=== PATIENT | female | born 1955 | race Caucasian/White ===

== ENCOUNTER 2016-08-08 22:00 | Inpatient (IN) ==
[2016-08-09] MEDS ORDERED: *HR* HYDROmorphone (PF) 1 MG/ML SYRINGE IVP ONE (00:33)
--- NOTE | 2016-08-09 01:26 | Internal Med History&Physical ---
Date of Encounter: 08/09/16 Time of Encounter: 01:26 Assessment and Plan (1) Obstructive uropathy Current visit: Yes Status: Acute Due to suspected right ureteric calculus - will request US scan of the KUB. Medical therapy with flomax, IV fluids. Urology consult - for possible intervention. Pt is NPO now (2) Hydronephrosis Current visit: Yes Status: Acute Due to suspected right ureteric calculus. Medical therapy with flomax, IV fluids. analgesia. Urology consult. Qualifiers: Hydronephrosis type: with ureteral calculous obstruction Qualified Code(s) : N13.2 - Hydronephrosis with renal and ureteral calculous obstruction (3) Ureteric calculus Current visit: Yes Status: Suspected (4) NICHOL (acute kidney injury) Current visit: Yes Status: Acute Likely due to obstructive uropathy. Monitor renal function (5) Abdominal pain Current visit: Yes Status: Acute Likely due to ureteric calculus and hydronephrosis. Analgesia Qualifiers: Abdominal location: right upper quadrant Qualified Code(s): R10.11 - Right upper quadrant pain Internal Medicine - H&P: HPI Chief complaint: Right flank pain Admitted From: Hospital to Hospital Transfer Plans for Post Hospital Care: Home History of present illness: Ms. Palomares is a 60 year old female with past medical history significant for hypertension, chronic back pain - presented to the emergency department at [facility], with the history of right flank pain, started about 4 PM yesterday. Patient reports severe (10/10), sharp pain in the right flank, radiating to the right lower abdomen started at about 4 PM yesterday and continuing. She cannot get comfortable in any position due to pain. She needed multiple pain medications in the emergency department. She reports associated nausea. She denies hematuria, changes in bowel movement. She denies fever, chills, chest pain, shortness of breath, cough or expectoration. She was evaluated in the emergency department at the [facility] and was noted to have right hydronephrosis, with suspicion for ureteric stone. On- call Urologist (at [facility]) was contacted, who recommended admission to the hospitalist service. I have reviewed the CT scan result from [facility] - findings highly suspicious for a hydronephrosis and obstructive uropathy right side. Likely distal right ureteral calculus. Labs reviewed - urinalysis is negative for leukocyte esterase and nitrates. CBC showed WBC 8.5, hemoglobin 12.1, hematocrit 38, platelets 326. Serum sodium 140, potassium 3.3, BUN 16, creatinine 1.27, Glucose 126, calcium 9.2, AST 23, AST 29, ALP 106, bilirubin 0.3, albumin 3.8. Past Med Surg Social Fam HX - Past Medical History Medical history: arthritis, hypertension Psychiatric history: anxiety - Past Surgical History Surgical History: hysterectomy - Social History Smoking Status: Never smoker Smokeless Tobacco Status: No Alcohol use: none Drug use: none - Family History Mother Hx Family Cancer: Yes (breast) Father Hx Family Cancer: Yes (lung) Daughter Hx Family Medical Disorders: Yes (DVT, factor 5) Internal Medicine - H&P: Meds Carla-D 24 Hour Tablet PRN 08/09/16 [History] Buspirone HCl [Buspar] 10 mg PO BID PRN 08/09/16 [History] Cyclobenzaprine 10 mg BID 08/09/16 [History] Microzide 12.5 mg DAILY 08/09/16 [History] Movantik 25 mg DAILY 08/09/16 [History] Neurontin 300 mg TID 08/09/16 [History] Norvasc 10 mg DAILY 08/09/16 [History] Oxycodone HCl 20 mg Q4HR 08/09/16 [History] Tylenol 500 mg PRN 08/09/16 [History] Vitamin D 50,000 units 08/09/16 [History] Zofran 4 mg PRN 08/09/16 [History] Allergies Erythromycin Base Allergy (Verified 08/09/16 00:16) See Comments swelling of eyes and internal organs Methadone Allergy (Verified 08/09/16 00:16) See Comments cardiac arrest x2 Tetracycline Allergy (Verified 08/09/16 00:16) See Comments swelling of eyes and internal organs All Systems PM: A 10-system review of systems was performed and is negative for pertinent findings except as documented above in the HPI. - Constitutional Vitals: Temp Pulse Resp BP Pulse Ox 97.3 F L 99 18 146/93 97 08/08/16 23:50 08/08/16 23:50 08/08/16 23:50 08/08/16 23:50 08/08/16 23:50 Exam: General: In acute distress at the time of my evaluation - offered immediate pain relief HEENT: Oral mucosa is moist. No conjunctival palor or scleral icterus Neck: No obvious neck swellings Lungs: Clear to auscultation Cardiac: Regular rate and rhythm. possible murmurs Abdomen: Tenderness over the right flank and lower abdomen Neurological: Alert and oriented. No gross localizing deficits Psych: Not aggressive or agitated Extremities: no significant leg edema Skin: No generalized rash Internal Med - H&P Results - Labs CBC & Chem 7: 08/09/16 04:50
[2016-08-09] MEDS: *HR* HYDROmorphone (PF) 1 MG/ML SYRINGE IVP PRN ×3 (02:36→11:04)
[2016-08-09] MEDS ORDERED: Ondansetron 4 MG/2 ML VIAL IVP PRN ×2 (03:25→19:13)
[2016-08-09] MEDS ORDERED: Naloxone 0.4 MG/ML INJ IVP PRN ×2 (04:33→19:13)
[2016-08-09 05:01] LABS: Prothrombin Time 11.3 Seconds (9.4-12.1)
[2016-08-09 05:03] LABS: Basophils % 0.4 %; Eosinophils % 0.3 %; Hemoglobin 11.5 g/dL (11.5-15.4); Immature Granulocytes % 0.6 % (0-4); Lymphocytes % 22.4 %; Mean Corpuscular HGB Conc 31.1 g/dL (31.6-35.5); Mean Corpuscular Volume 90.2 fL (83.0-100.0); Mean Platelet Volume 9.1 fL (9.4-12.4); Monocytes # 0.6 K/mcL (0.0-1.3); Monocytes % 6.1 %; Neutrophils # 6.3 K/mcL (1.6-8.9); Platelet Count 283 K/mcL (140-400); Red Cell Distribution Width 13.9 % (11.5-14.5); Segmented Neutrophils % 70.2 %
[2016-08-09 05:04] LABS: Activated Partial Thrombo Time 33.4 Seconds (26.0-36.0)
[2016-08-09] MEDS: 0.9 % Sodium Chloride 1,000 ML IVC SCH ×3 (05:04→22:00)
[2016-08-09] MEDS: *HR* Morphine 2 MG/ML SYRINGE IVP PRN ×3 (05:09→15:44)
[2016-08-09 05:24] LABS: Calcium 8.1 mg/dL (8.6-10.8)
[2016-08-09] MEDS: Gabapentin 300 MG CAPSULE PO SCH ×3 (07:56→20:06)
--- NOTE | 2016-08-09 09:56 | Urology - Consult Note ---
Date of Encounter: 08/09/16 Time of Encounter: 09:53 - Assessment and Plan (1) Hydronephrosis Current Visit: Yes Status: Acute Assessment and plan: from distal stone Qualifiers: Hydronephrosis type: with ureteral calculous obstruction Qualified Code(s) : N13.2 - Hydronephrosis with renal and ureteral calculous obstruction (2) Ureteric calculus Current Visit: Yes Status: Suspected Assessment and plan: will plan on stone extraction this afternoon Urology CN:MOHSEN Consult date: 08/09/16 Reason for consult Urology: Hydronephrosis Requesting physician: Sofi Paige History of present illness: Edie is a 60 y/o female with history of severe right sided flank pain yesterday. The patient states that her pain is a 10/10 sharp in nature. The patient had a ct done at an OSH which showed hydro but no obvious stone. CD not available for review. CT repeated this am showed distal right ureteral stone at the [facility]. + occasional nausea. Past Med Surg Social Fam HX - Past Medical History Medical history: arthritis, hypertension Psychiatric history: anxiety - Past Surgical History Surgical History: hysterectomy - Social History Smoking Status: Never smoker Smokeless Tobacco Status: No Alcohol use: none Drug use: none - Family History Mother Hx Family Cancer: Yes (breast) Father Hx Family Cancer: Yes (lung) Daughter Hx Family Medical Disorders: Yes (DVT, factor 5) Medications and Allergies Amlodipine Besylate [Amlodipine Besylate] 10 mg PO DAILY 08/09/16 [History] Buspirone HCl [Buspar] 10 mg PO BID 08/09/16 [History] Cholecalciferol (Vitamin D3) [Vitamin D3] 50,000 unit PO 2XW 08/09/16 [History] Cyclobenzaprine [Flexeril] 10 mg PO BID 08/09/16 [History] Gabapentin [Neurontin] 300 mg PO BID 08/09/16 [History] Gabapentin [Neurontin] 600 mg PO HS 08/09/16 [History] Hydrochlorothiazide [Hydrochlorothiazide] 12.5 mg PO DAILY 08/09/16 [History] Naloxegol Oxalate [Movantik] 25 mg PO DAILY 08/09/16 [History] Ondansetron HCl 4 mg PO DAILY PRN 08/09/16 [History] Oxycodone HCl 40 mg PO Q6H PRN 08/09/16 [History] Allergies Erythromycin Base Allergy (Verified 08/09/16 00:16) See Comments swelling of eyes and internal organs Methadone Allergy (Verified 08/09/16 00:16) See Comments cardiac arrest x2 Tetracycline Allergy (Verified 08/09/16 00:16) See Comments swelling of eyes and internal organs Review of Systems - Constitutional no chills - EENT Nose, mouth and throat: no dizziness - Cardiovascular no chest pain - Respiratory no cough - Gastrointestinal as per HPI, abdominal pain, change in bowel habits Exam Initial Vital Signs Temp Pulse Resp BP Pulse Ox 97.3 F L 99 18 146/93 97 08/08/16 23:50 08/08/16 23:50 08/08/16 23:50 08/08/16 23:50 08/08/16 23:50 - General physical appearance Present: well developed - Eyes Present: PERRL - ENT Present: normal nares - Neck Present: no masses - Respiratory Present: normal respiratory effort - Cardiovascular Cardiovascular exam IM: RRR Urology Results - Labs 08/09/16 04:50 08/09/16 04:50 Abnormal lab results MCHC 31.1 g/dL (31.6-35.5) L 08/09/16 04:50 MPV 9.1 fL (9.4-12.4) L 08/09/16 04:50 Creatinine 1.32 mg/dL (0.57-1.11) H 08/09/16 04:50 Est GFR ( Amer) 49 (> 60) L 08/09/16 04:50 Est GFR (Non-Af Amer) 41 (> 60) L 08/09/16 04:50 Glucose 107 mg/dL (70-99) H 08/09/16 04:50 Calcium 8.1 mg/dL (8.6-10.8) L 08/09/16 04:50 Diabetes panel 08/09/16 Range/Units 04:50 Sodium 142 (136-145) mEq/L Potassium 4.0 (3.5-4.5) mEq/L Chloride 106 (98-109) mEq/L Carbon Dioxide 29 (19-29) mEq/L BUN 14 (7-20) mg/dL Creatinine 1.32 H (0.57-1.11) mg/dL Glucose 107 H (70-99) mg/dL Calcium 8.1 L (8.6-10.8) mg/dL Calcium panel 08/09/16 Range/Units 04:50 Calcium 8.1 L (8.6-10.8) mg/dL Pituitary panel 08/09/16 Range/Units 04:50 Sodium 142 (136-145) mEq/L Potassium 4.0 (3.5-4.5) mEq/L Chloride 106 (98-109) mEq/L Carbon Dioxide 29 (19-29) mEq/L BUN 14 (7-20) mg/dL Creatinine 1.32 H (0.57-1.11) mg/dL Glucose 107 H (70-99) mg/dL Calcium 8.1 L (8.6-10.8) mg/dL Adrenal panel 08/09/16 Range/Units 04:50 Sodium 142 (136-145) mEq/L Potassium 4.0 (3.5-4.5) mEq/L Chloride 106 (98-109) mEq/L Carbon Dioxide 29 (19-29) mEq/L BUN 14 (7-20) mg/dL Creatinine 1.32 H (0.57-1.11) mg/dL Glucose 107 H (70-99) mg/dL Calcium 8.1 L (8.6-10.8) mg/dL All other labs normal. - Imaging CT scan - abdomen: image reviewed CT scan - pelvis: image reviewed Consult Discharge Plan - Plan Referrals: Sandra Laureano, [employer] [Advanced Practice Nurse] -
[2016-08-09] MEDS ORDERED: *HR* HYDROmorphone 2 MG/ML SYRINGE IVP PRN (11:20)
--- NOTE | 2016-08-09 16:53 | Anesthesia Evaluation PreOp ---
Date of Encounter: 08/09/16 Time of Encounter: 17:24 - Past History Planned Operation: R USE with stent Cardiac History: HTN, Pacemaker/ICD (pacemaker only for bradycardia; last check she wasn't requiring her pacemaker at all) Pulmonary History: Denies Any Significant HX [employer] History: Other (anxiety, chronic back pain -- dorsal column stimulator in place) Other Medical History: Renal (acute renal injury, hydronephrosis), Other ( arthritis) Anesthesia History: No Prior Anesthetic Complications, Past Anesthesia ( hysterectomy) Alcohol Use: none Drug use: none Medications and Allergies Amlodipine Besylate [Amlodipine Besylate] 10 mg PO DAILY 08/09/16 [History] Buspirone HCl [Buspar] 10 mg PO BID 08/09/16 [History] Cholecalciferol (Vitamin D3) [Vitamin D3] 50,000 unit PO 2XW 08/09/16 [History] Cyclobenzaprine [Flexeril] 10 mg PO BID 08/09/16 [History] Gabapentin [Neurontin] 300 mg PO BID 08/09/16 [History] Gabapentin [Neurontin] 600 mg PO HS 08/09/16 [History] Hydrochlorothiazide [Hydrochlorothiazide] 12.5 mg PO DAILY 08/09/16 [History] Naloxegol Oxalate [Movantik] 25 mg PO DAILY 08/09/16 [History] Ondansetron HCl 4 mg PO DAILY PRN 08/09/16 [History] Oxycodone HCl 40 mg PO Q6H PRN 08/09/16 [History] Allergies Erythromycin Base Allergy (Verified 08/09/16 00:16) See Comments swelling of eyes and internal organs Methadone Allergy (Verified 08/09/16 00:16) See Comments cardiac arrest x2 Tetracycline Allergy (Verified 08/09/16 00:16) See Comments swelling of eyes and internal organs - Meds/Allergy Pre-op Review Medications Reviewed: Yes Allergies Reviewed: Yes Beta Blockers on Current Med List: No Anesthesia Results - Labs 08/09/16 04:50 08/09/16 04:50 - Imaging EKG: report reviewed, image reviewed Anesthesia Exam Last Vital Signs Temp 98.3 F 08/09/16 15:21 Pulse 80 08/09/16 15:21 Resp 14 08/09/16 15:21 BP 121/71 08/09/16 15:21 Pulse Ox 99 08/09/16 15:21 - HEENT Pupil (Motor): Pupils equal, EOMI Mallampati: III Teeth: Edentulous Oral Opening: Greater than 3 - [employer] LOC: Oriented [employer] Motor: Normal RUE, Normal LUE, Normal RLE, Normal LLE, Normal Face - Cardiac Rhythm: Regular Murmur: None - Pulmonary Breath Sounds: bilateral Clear Respiratory Effort: Symmetrical Anesthesia Assess/Plan ASA Score: 2 Modified Galt Scale for Level of Consciousness: Cooperative, oriented, and tranquil Anesthetic Plan: General Monitoring Plan: Standard Monitors Recovery Plan: PACU
[2016-08-09] MEDS ORDERED: *HR* Midazolam HCl 2 MG/2 ML VIAL ONE (17:37)
[2016-08-09] MEDS ORDERED: *HR* Propofol 200 MG/20 ML VIAL IVP ONE ×2 (17:37→17:40)
[2016-08-09] MEDS ORDERED: *HR* FentaNYL (PF) 100 MCG/2 ML VIAL ONE (17:37)
[2016-08-09] MEDS ORDERED: Dexamethasone 4 MG/ML VIAL ONE (17:52)
[2016-08-09] MEDS ORDERED: Ondansetron 4 MG/2 ML VIAL ONE (17:52)
[2016-08-09] MEDS ORDERED: *HR* HYDROmorphone (PF) 1 MG/ML SYRINGE IVP PRN (18:05)
[2016-08-09] MEDS ORDERED: *HR* Promethazine 25 MG/ML VIAL IVP PRN (18:05)
--- NOTE | 2016-08-09 18:17 | Operative Note ---
Date of procedure: 08/09/16 Pre-op diagnosis: right distal ureteral stone Post-op diagnosis: same Procedure: right ureteroscopic basket retrieval of stone. right 4.8x26cm ureteral stent placment. Anesthesia: GETA Surgeon: Adria Raman Specimen: right ureteral stone Condition: stable Disposition: PACU Procedure in Detail: Patient was preped and draped in sterile fashion. Time out performed. I then inserted the semirigid ureteroscope into the bladder and then cannulated the right ureter. The distal ureter was narrow, but I was able to negotiate the scope past this area. I then encountered the stone. It was grasped using a basket and removed. I then placed a sensor wire into the right kidney. I then placed a 4.8x26cm ureteral stent into the right kidney. A string was left for easy removal in 2-3 days.
--- NOTE | 2016-08-09 18:42 | Anesthesia Evaluation Post Op ---
Date of Encounter: 08/09/16 Time of Encounter: 18:45 - Vital Signs Vital Signs: Vital Signs/O2 Sat/Glucose, Most Current Temp Pulse Resp BP Pulse Ox 08/09/16 18:36 79 16 143/85 100 08/09/16 18:26 89 16 144/77 100 08/09/16 18:16 99.3 F 94 16 138/85 97 08/09/16 15:21 98.3 F 80 14 121/71 99 - Lungs Lungs: Clear Ascult./Percussion - Airway Airway: Non-obstructed - Cardiovascular Regular Rate - Mental Status Mental Status: Alert & Oriented, Answers Appropriately - Pain Pain Scale: 0 - Nausea Vomiting Nausea Vomiting: Not Present - Hydration Hydration: Ice chips - Discharge PostOp Status: Transfer Patient to floor
[2016-08-09] MEDS: *HR* HYDROmorphone 2 MG/ML SYRINGE IVP PRN ×2 (20:06→22:27)
[2016-08-10] MEDS: *HR* Morphine 2 MG/ML SYRINGE IVP PRN ×2 (03:53→06:38)
[2016-08-10 06:35] LABS: BUN/Creatinine Ratio 14 (6-26); Blood Urea Nitrogen 12 mg/dL (7-20); Calcium 8.4 mg/dL (8.6-10.8); Carbon Dioxide 27 mEq/L (19-29); Chloride 109 mEq/L (98-109); Glucose 108 mg/dL (70-99); Osmolality,Calculated 294 (280-300); Phosphorous 2.3 mg/dL (2.3-4.7); Potassium 4.4 mEq/L (3.5-4.5); Sodium 142 mEq/L (136-145); eGFR For African Americans > 60 (> 60); eGFR For Non-African Americans > 60 (> 60)
[2016-08-10 06:40] LABS: Basophils % 0.2 %; Hematocrit 34.8 % (35.3-44.9); Hemoglobin 10.9 g/dL (11.5-15.4); Immature Granulocytes % 0.5 % (0-4); Lymphocytes # 1.1 K/mcL (0.6-4.6); Lymphocytes % 17.9 %; Mean Corpuscular HGB Conc 31.3 g/dL (31.6-35.5); Mean Corpuscular Volume 92.6 fL (83.0-100.0); Mean Platelet Volume 10.3 fL (9.4-12.4); Monocytes # 0.2 K/mcL (0.0-1.3); Neutrophils # 4.7 K/mcL (1.6-8.9); Platelet Count 260 K/mcL (140-400); Red Blood Count 3.76 M/mcL (3.82-4.97); Red Cell Distribution Width 13.6 % (11.5-14.5); Segmented Neutrophils % 78.4 %
[2016-08-10] MEDS: 0.9 % Sodium Chloride 1,000 ML IVC SCH (06:43)
[2016-08-10 07:19] VITALS: BP 137/75
[2016-08-10] MEDS: Gabapentin 300 MG CAPSULE PO SCH (07:58)
[2016-08-10] MEDS ORDERED: *HR* OxyCODONE Immed Rel 5 MG TABLET PO PRN (08:04)
--- NOTE | 2016-08-10 08:16 | Urology Progress Note ---
Date of Encounter: 08/10/16 Time of Encounter: 08:15 - Assessment and Plan (1) Hydronephrosis Current Visit: Yes Status: Acute Assessment and plan: sp stenting. patient instructed how to remove stent in 2-3 days. Qualifiers: Hydronephrosis type: with ureteral calculous obstruction Qualified Code(s) : N13.2 - Hydronephrosis with renal and ureteral calculous obstruction (2) Ureteric calculus Current Visit: Yes Status: Suspected Assessment and plan: sp removal. f/u in 2-3 weeks Progress Note Narrative: POD 1 from right ureteroscopic stone extraction. patient feeling better. Objective Initial Vital Signs Temp Pulse Resp BP Pulse Ox 97.3 F L 99 18 146/93 97 08/08/16 23:50 08/08/16 23:50 08/08/16 23:50 08/08/16 23:50 08/08/16 23:50 - General physical appearance Present: well developed - Abdomen Present: soft - Labs 08/10/16 05:32 08/10/16 05:32 Diabetes panel 08/10/16 Range/Units 05:32 Sodium 142 (136-145) mEq/L Potassium 4.4 (3.5-4.5) mEq/L Chloride 109 (98-109) mEq/L Carbon Dioxide 27 (19-29) mEq/L BUN 12 (7-20) mg/dL Creatinine 0.85 (0.57-1.11) mg/dL Glucose 108 H (70-99) mg/dL Calcium 8.4 L (8.6-10.8) mg/dL Calcium panel 08/10/16 Range/Units 05:32 Calcium 8.4 L (8.6-10.8) mg/dL Phosphorus 2.3 (2.3-4.7) mg/dL Pituitary panel 08/10/16 Range/Units 05:32 Sodium 142 (136-145) mEq/L Potassium 4.4 (3.5-4.5) mEq/L Chloride 109 (98-109) mEq/L Carbon Dioxide 27 (19-29) mEq/L BUN 12 (7-20) mg/dL Creatinine 0.85 (0.57-1.11) mg/dL Glucose 108 H (70-99) mg/dL Calcium 8.4 L (8.6-10.8) mg/dL Adrenal panel 08/10/16 Range/Units 05:32 Sodium 142 (136-145) mEq/L Potassium 4.4 (3.5-4.5) mEq/L Chloride 109 (98-109) mEq/L Carbon Dioxide 27 (19-29) mEq/L BUN 12 (7-20) mg/dL Creatinine 0.85 (0.57-1.11) mg/dL Glucose 108 H (70-99) mg/dL Calcium 8.4 L (8.6-10.8) mg/dL - VTE Documentation of Mechanical Device: Intermittent pneumatic compression device Consult Discharge Plan - Plan Referrals: Adria Raman MD [Partnered Physician] - Sandra Laureano CNP [Advanced Practice Nurse] -
--- NOTE | 2016-08-10 10:10 | Discharge Summary ---
Date of Encounter: 08/10/16 Time of Encounter: 08:30 - Discharge Diagnosis (1) Ureterolithiasis Priority: Primary Status: Acute (2) Obstructive uropathy Priority: Primary Status: Resolved (3) Hydronephrosis Priority: Primary Status: Acute Qualifiers: Hydronephrosis type: with ureteral calculous obstruction Qualified Code(s) : N13.2 - Hydronephrosis with renal and ureteral calculous obstruction (4) NICHOL (acute kidney injury) Priority: Primary Status: Resolved (5) HTN (hypertension) Priority: Secondary Status: Chronic Qualifiers: Hypertension type: essential hypertension Qualified Code(s): I10 - Essential (primary) hypertension (6) Chronic back pain Priority: Secondary Status: Chronic Qualifiers: Back pain location: low back pain Back pain laterality: midline Sciatica presence: without sciatica Qualified Code(s): M54.5 - Low back pain; G89.29 - Other chronic pain - Discharge Medications Home Medications: Amlodipine Besylate 10 mg PO DAILY 08/09/16 [History] Buspirone HCl [Buspar] 10 mg PO BID 08/09/16 [History] Cholecalciferol (Vitamin D3) [Vitamin D3] 50,000 unit PO 2XW 08/09/16 [History] Cyclobenzaprine [Flexeril] 10 mg PO BID 08/09/16 [History] Gabapentin [Neurontin] 300 mg PO BID 08/09/16 [History] Gabapentin [Neurontin] 600 mg PO HS 08/09/16 [History] Hydrochlorothiazide 12.5 mg PO DAILY 08/09/16 [History] Naloxegol Oxalate [Movantik] 25 mg PO DAILY 08/09/16 [History] Ondansetron HCl 4 mg PO DAILY PRN 08/09/16 [History] Oxycodone HCl 40 mg PO Q6H PRN 08/09/16 [History] Allergies/Adverse Reactions: Allergies Erythromycin Base Allergy (Verified 08/09/16 00:16) See Comments swelling of eyes and internal organs Methadone Allergy (Verified 08/09/16 00:16) See Comments cardiac arrest x2 Tetracycline Allergy (Verified 08/09/16 00:16) See Comments swelling of eyes and internal organs Procedures/tests Complete & Pending: Procedures Performed prior 72 hours Category Date Time Status CT abd pelvis wo no iv no oral [CT] Stat Cat Scan 08/09/16 07:17 Completed US retroperitoneal limited [US] Stat Exams 08/09/16 10:00 Completed Date of admission: 08/09/16 04:41 Primary care physician: PCP NO Consults: 08/09/16 00:19 Consult to Pastoral Services [CONS] Routine Comment: - Patient Status Disposition: Home, Self-Care Condition: Good Functional capacity at discharge: independent ambulation Overall status at discharge: patient is progressing back to baseline - Discharge Instructions Follow Up With: Adria Hernandez MD [Partnered Physician] - Sandra Laureano CNP [Advanced Practice Nurse] - Additional Instructions: FOLLOW UP WITH DR HERNANDEZ IN 2-3 WEEKS PLEASE REMOVE YOUR STENT IN 2-[address] HERNANDEZ INSTRUCTIONS. CHECK YOUR BLOOD PRESSURE DAILY, KEEP A RECORD OF THE READINGS AND TAKE TO PRIMARY CARE DOCTOR'S APPOINTMENT. - Diet and Activity Activity: resume usual activities as tolerated Diet: low salt diet Interval History: patient feels better. she is eager to go home. Hospital course: Ms. Palomares is a 60 year old female with a past medical history of hypertension and chronic back pain on opiates who presented to [facility] with the chief complaint of right flank pain. CT of the abdomen and pelvis was highly suspicious for right sided ureterolithiasis, hydronephrosis and obstructive uropathy. She was transferred to our hospital for urology consultation. Patient is started on IV fluids and pain control with IV opiates. She underwent right ureteroscopic basket retrieval of stone and right 4.8x26cm ureteral stent placement. Her symptoms resolved and she was eating and ambulating well. PLAN: Follow-up in the urology clinic in 2-3 weeks. - Time Spent with Patient Total time spent providing and/or coordinating discharge services: - Constitutional Vitals: Temp Pulse Resp BP Pulse Ox 98.1 F 77 16 137/75 97 08/10/16 07:17 08/10/16 07:17 08/10/16 07:17 08/10/16 07:17 08/10/16 07:17 General appearance: Present: cooperative, A&O X 3, pleasant, no acute distress, answers questions appropriately - Respiratory Respiratory exam: Present: CTAB - Cardiovascular Cardiovascular exam: Present: RRR - GI/Abdominal GI/Abdominal exam: Present: normal bowel sounds, soft. Absent: distended, tenderness - Extremities Exam Extremities exam: Absent: pedal edema - Back Exam Back exam: Absent: CVA tenderness (L), CVA tenderness (R) - Neurological Exam Neurological exam: Present: alert, oriented X3, no focal deficits, strengths equal and symetr throughout. Absent: facial droop, speech deficit - Skin Skin exam: Absent: rash - VTE Documentation of Mechanical Device: Intermittent pneumatic compression device
== END 2016-08-10 12:00 | disposition home or self-care (01) | DRG 669 ==
LOC: 3ANU
PROVIDERS: ADMIT Internal Medicine; ATTEND Internal Medicine